=== PATIENT | female | born 1950 | race Caucasian/White ===

== ENCOUNTER → 2023-10-13 | Outpatient (CLI) | payer MEDICARE | LOC: MC.RAD 14:10 | DX: Z12.31 Encounter for screening mammogram for malignant neoplasm of breast (principal) ==

== ENCOUNTER → 2024-07-08 | Outpatient (CLI) | payer MEDICARE ==
[~2024-07-08] MED LIST: Iohexol 300 - 100 ML VIAL IV ONE; NS 100 ML IV SCH
== END ==
LOC: COL.RAD 14:47
DX: M47.812 Spondylosis without myelopathy or radiculopathy, cervical region (principal); S22.22XA Fracture of body of sternum, initial encounter for closed fracture; X58.XXXA Exposure to other specified factors, initial encounter; K57.30 Diverticulosis of large intestine without perforation or abscess without bleeding; D47.3 Essential (hemorrhagic) thrombocythemia
CPT/HCPCS: Q9967